=== PATIENT | female | born 1975 | race Caucasian/White ===

== ENCOUNTER → 2017-11-28 | Outpatient (CLI) | payer BC ==
[~2017-11-28] MED LIST: PRENTAB26 PO
== END | disposition home or self-care (01) ==
LOC: C.PAPS 14:41
PROVIDERS: ATTEND Obstetrics & Gynecology
DX: Z01.419 Encounter for gynecological examination (general) (routine) without abnormal findings (principal)

== ENCOUNTER → 2017-12-10 | Outpatient (CLI) | payer BC ==
[2017-12-10 17:21] LABS: BASO % 0.2 %; BASO ABS # 0.02 K/uL (0-0.2); EOS % 2.6 %; EOS ABS # 0.23 K/uL (0-0.5); HEMATOCRIT 38.7 % (37-47); HEMOGLOBIN 13.3 g/dL (12.0-16.0); IG# 0.01 K/uL (0.00-0.02); LYMPH % 30.6 %; LYMPH ABS # 2.75 K/uL (1.2-3.4); MEAN CELL VOLUME 91.3 fL (80-100); MEAN CORPUSCULAR HEMOGLOBIN 31.4 pg (25-34); MEAN CORPUSCULAR HGB CONC 34.4 g/dl (32-36); MEAN PLATELET VOLUME 10.7 fL (7.4-10.4); MONO % 7.7 %; MONO ABS # 0.69 K/uL (0.11-0.59); NEUT % 58.8 %; NEUT ABS # 5.29 K/uL (1.4-6.5); PLATELET COUNT 250 K/uL (130-400); RED CELL DISTRIBUTION WIDTH CV 12.9 % (11.5-14.5); RED CELL DISTRIBUTION WIDTH SD 42.9 fL (36.4-46.3); WHITE BLOOD COUNT 8.99 K/uL (4.8-10.8)
== END | disposition home or self-care (01) ==
LOC: C.LABPVFM 15:57
PROVIDERS: ATTEND Obstetrics & Gynecology
DX: N92.0 Excessive and frequent menstruation with regular cycle (principal)

== ENCOUNTER 2024-03-27 06:08 | Observation (INO) ==
--- NOTE | 2024-03-19 09:15 | Anesthesiology Consultation ---
Date of Service March 19, 2024 Assessment & Plan Chart Review Chart Review: Acceptable Risk for Surgery and Patient NOT seen in Pre Admission Testing Consults Requested none History Surgery Operation Date: 03/27/24 09:20 Proposed Procedures p Total Abdominal Hysterectomy, With Preservation of Both Ovaries - Esvin Ramirez MD s Suspension of Vaginal Cuff - Esvin Ramirez MD Height/Weight Height: 5 ft 2 in Weight: 79.379 kg Allergies Allergy/AdvReac Type Severity Reaction Status Date / Time No Known Allergies Allergy Unknown Verified 03/19/24 07:32 Medications Home Medications Medication Instructions Recorded Confirmed Last Taken No Known Home Medications 03/19/24 03/19/24 Unknown Past Medical History Medical History No known health problems History of postoperative nausea and vomiting Past Surgical History Surgical History History of section x 2 History of cholecystectomy Social History Smoking Status: Never smoker Do You Dip or Chew Tobacco: No Hx Alcohol Use: No Hx Substance Use: No substance use type: does not use
[2024-03-27 06:42] LABS: Basophils # (auto) 0.05 K/uL (0.00-0.20); Basophils % (auto) 0.7 %; Eosinophils # (auto) 0.37 K/uL (0.00-0.50); Hematocrit (blood only) 42.1 % (37.0-47.0); Hemoglobin 14.1 g/dl (12.0-16.0); Immature Granulocytes # (auto) 0.02 K/uL (0.01-0.20); Immature Granulocytes % (auto) 0.3 %; Lymphocytes # (auto) 2.54 K/uL (1.20-3.40); Lymphocytes % (auto) 34.4 %; Mean Corpuscular Hemoglobin 30.5 pg (25.0-34.0); Mean Corpuscular Hgb Conc 33.5 g/dL (32.0-36.0); Mean Corpuscular Volume 91.1 fL (80.0-100.0); Mean Platelet Volume 9.8 fL (9.4-12.4); Monocytes # (auto) 0.58 K/uL (0.11-0.59); Monocytes % (auto) 7.8 %; Neutrophils # (auto) 3.83 K/uL (1.40-6.50); Neutrophils % (auto) 51.8 %; Platelet Count 291 K/uL (130-400); RDW Coefficient of Variation 12.4 % (11.5-14.5); RDW Standard Deviation 40.9 fL (36.4-46.3); Red Blood Count 4.62 M/uL (4.20-5.40); White Blood Count 7.39 K/ul (4.8-10.8)
[2024-03-27] MEDS: LACTATED RINGER'S 1,000 ML IV SCH ×3 (06:46→13:00)
--- NOTE | 2024-03-27 07:05 | History & Physical Bridge Note ---
Date of Service March 27, 2024 History & Physical Bridge Note I have examined the patient, reviewed the History & Physical and in the interval since the performance of the History & Physical I have noted the following changes of clinical significance: no changes noted
[2024-03-27] MEDS: SCOPOLAMINE 1 MG/72 HR TDSY PATCH TD ONE ×2 (07:39→08:38)
[2024-03-27] MEDS ORDERED: MIDAZOLAM HCL 1 MG/ML 2ML VIAL ONE ×2 (07:40→08:16)
[2024-03-27] MEDS ORDERED: fentaNYL citrate PF 100 MCG/2 ML VIAL ONE ×2 (07:40→08:12)
[2024-03-27] MEDS ORDERED: MoRPHine SULFATE PF 1 MG/ML 10 ML AMP/VIAL ONE (07:40)
[2024-03-27] MEDS ORDERED: NALOXONE HCL 1 MG in SODIUM CHLORIDE 0.9% 1,000 ML IV PRN (08:16)
[2024-03-27] MEDS ORDERED: diphenhydrAMINE 50 MG/ML VIAL IV PRN (08:16)
[2024-03-27] MEDS ORDERED: NALOXONE HCL 0.4 MG/1 ML VIAL/CARP IV PRN (08:16)
[2024-03-27] MEDS ORDERED: MEPERIDINE HCL 25 MG/ML CARP/VIAL IV PRN (08:16)
[2024-03-27] MEDS ORDERED: ePHEDrine sulfate 50 MG/ML AMP IV PRN (08:16)
[2024-03-27] MEDS ORDERED: NALBUPHINE HCL 5 MG in SYRINGE 0 ML IV PRN (08:16)
[2024-03-27] MEDS ORDERED: NALOXONE HCL 0.08 MG in SYRINGE 1.8 ML IV PRN (08:16)
[2024-03-27] MEDS ORDERED: LACTATED RINGER'S 500 ML IV PRN (08:16)
[2024-03-27] MEDS ORDERED: LIDOCAINE 2% 2 ML VIAL/AMP(20MG/ML) INFIL ONE (08:18)
[2024-03-27] MEDS ORDERED: PROPOFOL IV EMULSION 10 MG/ML 20 ML VIAL IV ONE ×2 (08:18→11:00)
[2024-03-27] MEDS ORDERED: ROCURONIUM BROMIDE 10 MG/ML 5 ML VIAL IV ONE (08:19)
[2024-03-27] MEDS ORDERED: DEXAMETHASONE SOD INJ 4 MG/ML VIAL ONE ×2 (08:19→10:45)
[2024-03-27] MEDS ORDERED: DC INTRASPINAL MORPHINE SCH (08:30)
[2024-03-27] MEDS ORDERED: NO NARCOTICS OR SEDATIVES SCH (08:30)
[2024-03-27] MEDS: cefOXitin 2,000 MG in DEXTROSE 5 % MINI-B 50 ML IV SCH (08:32)
[2024-03-27] MEDS ORDERED: KETAMINE HCL 10MG/ML SYR ONE (08:58)
[2024-03-27] MEDS ORDERED: METOCLOPRAMIDE HCL INJ 5 MG/ML 2 ML VIAL ONE (09:22)
[2024-03-27] MEDS ORDERED: SUGAMMADEX SODIUM 200 MG/2 ML VIAL IV ONE (10:45)
[2024-03-27] MEDS ORDERED: ONDANSETRON INJ 2 MG/ML 2 ML VIAL ONE (10:45)
--- OUTSIDE RECORDS SUMMARY | 2024-03-27 10:51 | External Medical Summary | Summary of Care ---
Author Name Unknown Organization [facility] Address [address] [place] [address] Phone [phone] Care Team Providers Care [facility]of[facility]oped[facility] Dentist Name Role Phone Unavailable Primary Care Provider Unavailabl e Reason for Visit * Reason Comments Pre-Op Testing Encounter Details Date Type Department Care Team (Late st Contact Info) Description 03/17/2024 1:00 PM EDT Office Visit Gynecology/Obstetrics [facility] [address] [place] [id number] Esvin Ramirez MD [address] [place] [phone] Pre-op testing* Allergies No known active allergiesdocumented as of this encounter (statuses as of 03/17/2024) Medications Medication Sig Dispensed Refills Start Date End Date Status Norethindrone Acetate 5 MG Oral Tablet Take 1 Tablet by mouth in the morning. 01/01/2024 Active documented as of this encounter (statuses as of 03/17/2024) Active Problems Problem Noted Date Diagnosed Date Pelvic pain in female 01/28/2024 documented as of this encounter (statuses as of 03/17/2024) Social History Tobacco Use Types Packs/Day Years Used Date Smoking Tobacco: Never Smokeless Tobacco: Never Alcohol Use Standard Drinks/Week Comments No 0 (1 standard drink = 0.6 oz pur e alcohol) Hunger Vital Sign Answer Date Recorded Within the past 12 months, y ou worried that your food would run out before you got the money to buy more. Never true 01/14/20 24 Within the past 12 months, t he food you bought just didn't last and you didn't have money to get more. Never true 01/14/2024 Childcare Answer Date Recorded Do you feel overwhelmed with taking care of a child, family member or friend? No 01/14/2024 Does your family need help f inding childcare? (Household - for ages 0-17 years) Not on file 01/14/2024 Clothing Answer Date Recorded Have you been unable to get clothing when it was really needed? No 01/14/2024 Is your family able to get c lothes or diapers when needed? (Household - for ages 0-17 years) Not on file 01/14/2024 Personal Safety Answer Date Recorded Do you feel unsafe or have concerns for your saf ety? No 01/14/2024 Do you have concerns for you r family's safety? (Household - for ages 0-17 years) Not on file 01/14/2024 Utilities Answer Date Recorded Do you have trouble paying y our heating, water, or electric bill? No 01/14/2024 Is your family able to pay t he heat, water, or electric bill? (Household - for ages 0-17 years) Not on file 01/14/2024 Does your family have access to good internet? (Household - for ages 0-17 years) Not on file 01/14/2024 Employment Status Answer Date Recorded Are you unemployed or without regular income? No 01/14/2024 Does the household have a re gular source of income? (Household - for ages 0-17 years) Not on file 01/14/2024 Social Connections Answer Date Recorded How often do you feel lonely or isolated from th ose around you? Never 01/14/2024 Financial Resource Strain Answer Date R ecorded Do you have any trouble payi ng for your medications, or do you think you might in the future? No 01/14/2024 Does your family have troubl e paying for medicine? (Household - for ages 0-17 years) Not on file 01/14/2024 Transportation Needs Answer Date Record ed READ ONLY Do you have troubl e getting a ride to medical visits or work? Never True 01/14/2024 Does your family have a hard time getting a ride to doctors visits? (Household - for ages 0-17 years) Not on file 01/14/2024 Has lack of transportation k ept you from medical appointments, meetings, work, or from getting things needed for daily living? Check all that apply. (Adult - for ages 18 years and over) Not on file 01/14/2024 Do you (or your family) have trouble finding or paying for a ride (transportation)? (Household - for ages 0-17 years) Not on file 01/14/2024 Housing Stability Answer Date Recorded Do you currently live in a s helter or have no steady place to sleep at night? No 01/14/2024 READ ONLY Do you think you a re at risk of becoming homeless? No 01/14/2024 Does your family worry about paying for your home or becoming homeless? (Household - for ages 0-17 years) Not on file 0 01/14/2024 Are you homeless or worried that you might be in the future? (Adult - for ages 18 years and over) Not on file Are you (or your family) ruddy eless or worried that you might be in the future? (Household - for ages 0-17 years) Not on file Food Insecurity Answer Date Recorded Do you need food for this week? No 01/14/2024 Are you able to get enough f ood for your family? (Household - for ages 0-17 years) Not on file 01/14/2024 Does your family need food t his week? (Household - for ages 0-17 years) Not on file 01/14/2024 Do you always have enough fo od for your family? (Household - for ages 0-17 years) Not on file 01/14/2024 Sex and Gender Information Value Date Recorded Sex Assigned at Female 01/14/2024 10:17 AM EDT Gender Identity Female 01/14/2024 10:17 AM EDT Sexual Orientation Straight 01/14/2024 10 :17 AM EDT Job Start Date Occupation Industry Not on file Not on file Not on file documented as of this encounter Last Filed Vital Signs Vital Sign Reading Time Taken Comments Blood Pressure 110/66 03/17/2024 12:51 PM EDT Pulse - - Temperature 37 C (98.6 F) 03/17/2024 12:51 PM EDT Respiratory Rate - - Oxygen Saturation - - Inhaled Oxygen Concentration - - Weight 80.3 kg (177 lb) 03/17/2024 12:51 PM EDT Height 157.5 cm (5' 2") 03/17/2024 12:51 PM EDT Body Mass Index 32.37 03/17/2024 12:51 PM EDT documented in this encounter H&P Notes * Esvin Ramirez MD - 03/17/2024 1:19 PM EDT Nelida Olivares is a 48 year old, , Pre-menopausal female, presenting with Pelvic Pain: Onset/Duration: Patient has had her tubes tied and an endometrial ablation in 2013. She has had worsening pelvic pain for the past year and a half. She is getting severe pelvic pain at that time she should have her periods. She has no bleeding at the time she should have her menses. But she does have severe dysmenorrhea for several days. She has been evaluated with transvaginal ultrasound. She isdiagnosed with post endometrial ablation syndrome. These symptoms have been managed temporarily with norethindrone 5 mg daily. She is presently admitted for total abdominal hysterectomy with preservation of the ovaries and suspension of the vaginal cuff. Prior treatment: Tubal ligation with endometrial ablation in 2013 Recent imaging: Recently has had a transvaginal ultrasound which revealed post ablation syndrome. Menstrual history: Patient has had amenorrhea since undergoing endometrial ablation in 2013 PAST MEDICAL HISTORY: Past Medical History: Diagnosis Date Abnormal Papanicolaou smear of cervix and cervical HPV colpo- cyro PAST SURGICAL HISTORY: Past Surgical History: Procedure Laterality Date LIGATE/CUT OVIDUCT(S) VT DELIVERY ONLY x2 REMOVE GALLBLADDER FAMILY HISTORY: Family History Problem Relation Name Age of Onset Diabetes Grandmother (Maternal) Asthma Mother Beth Asthma Father Siva Bladder SOCIAL HISTORY: Social History Tobacco Use Smoking status: Never Smokeless tobacco: Never Substance Use Topics Alcohol use: No Drug use: No ALLERGIES: Patient has no known allergies. ROS: Constitutional: (-) fever chills sweats or weight loss Cardiovascular: (-) negative: no chest pain, dyspnea, syncope, or palpitations Pulmonary : (-) negative: no cough, wheezing, or shortness of breath Abdominal/GI: (-) negative: no pain, heartburn, dysphagia, bleeding, change in bowel habits, nauseaor vomiting Neurology: (-) negative: no focal neurologic defect PHYSICAL EXAMINATION: Most Recent Vital Signs: BP 110/66 | Temp 37 C (98.6 F) | Ht 1.575 m (5' 2") | Wt 80.3 kg (177 lb) | BMI 32.37 kg/m | BSA 1.87 m Constitutional: no acute distress HEENT: Head normocephalic, sclera clear, and neck supple, no adenopathy Heart: Regular rate & rhythm and no murmurs Lungs: respirations even and unlabored and lungs clear to auscultation Abdomen: soft, non-tender, no rebound, and abdomen soft and nontender with a well-healed Pfannenstiel incisional scar Neuro: alert and to person, place and time with fluent speech and no focal motor/sensory deficits noted IMPRESSION: Nelida Olivares is a 48 year old with patient has pelvic pain for the past 1-1/2 years. It is getting progressively worse over this period of time. And it is not responsive to nonnarcotic pain relievers. Pain is sufficient enough to interfere with her daily activities for the past 6 months PLAN: Total abdominal hysterectomy with preservation of both ovaries suspension of vaginal cuff. Esvin Ramirez MD documented in this encounter Nursing Notes * Eliana Cobian LPN - 03/17/2024 12:50 PM EDT Pt here today for pre op. documented in this encounter Plan of Treatment Health Maintenance Due Date Last Done Comments Diabetes Screening 1977 Lipid Panel 1977 Depression Screening 1989 HIV Screening 1992 Hepatitis C Screening 1995 DTaP,Tdap,and Td Vaccines (1 - Tdap) 1996 Hepatitis B Vaccine (1 of 3 - 19+ 3-dose series) 1996 Pap Smear 11/02/2005 11/02/2002, 11/02/2002 Cervical Cancer Screening 2007 HPV/Co-Test 2007 Mammogram 2017 Cologuard 2022 Colonoscopy 2022 Colorectal Cancer Screening 2022 Fecal Occult Blood Test 2022 Sigmoidoscopy 2022 COVID-19 Vaccine ( season) 2023 05/16/2021, 09/06/2020, 08/16/2020 Influenza Vaccine (FLU shot) (#1) 2024 05/29/2023, 05/30/2022, 05/31/2021, Additional history exists HPV (Gardasil) Vaccine Aged Out No lo nger eligible based on patient's age to complete this topic MENINGOCOCCAL (MENACTRA/MENVEO) Aged Out No longer eligible based on patient's age to complete this topic Pneumococcal Vaccine: Pediatrics (0 to 5 Years) and At-Risk Patients (6 to 64 Years) Aged Out No longer eligible based on patient's age to complete this topic documented as of this encounter Medical Devices Not on filedocumented as of this encounter Visit Diagnoses Diagnosis Pre-op testing- Primary Preoperative examination, unspecified documented in this encounter
[2024-03-27] MEDS: HEPARIN (PORCINE) 1000 UNIT/ML 10 ML (CATH LAB USE ONLY) ONE (11:21)
[2024-03-27] MEDS: LIDOCAINE 1%/EPINEPHRINE 1:100,000 50 ML VIAL ONE (11:21)
[2024-03-27] MEDS: VASOPRESSIN 20 UNIT/ML VIAL ONE (11:21)
--- NOTE | 2024-03-27 11:27 | Post Operative Brief Note ---
Immediate Post Op Note Date of Surgery March 27, 2024 Pre & Post Diagnosis Operation Date: 03/27/24 07:50 Pre-Op Diagnosis: Post endometrial ablation syndrome Post-Op Diagnosis: Post endometrial ablation syndrome I identified the patient and participated in the time-out.: Yes Procedure Operation Date: 03/27/24 07:50 Actual Procedures p Total Abdominal Hysterectomy, Left Salpingo-oopherectomy, Removal of Left Side Chocolate cyst endometrium(Left) - Esvin Ramirez MD Surgeon Esvin Ramirez MD Press Hand dulce Estimated Blood Loss 200 Findings Consistent with Post-Op Diagnosis left sided endometrioma Drains Ling Catheter and Jhonatan Drain (with safety pin) Complications none
[2024-03-27] MEDS: ONDANSETRON INJ 2 MG/ML 2 ML VIAL IV PRN (11:45)
--- NOTE | 2024-03-27 11:45 | Operative Report ---
Post Operative Report Pre & Post Diagnosis Operation Date: 03/27/24 07:50 Pre-Op Diagnosis: Post endometrial ablation syndrome Post-Op Diagnosis: Post endometrial ablation syndrome Left-sided endometrioma I identified the patient and participated in the time-out.: Yes Procedure Operation Date: 03/27/24 07:50 Actual Procedures p Total Abdominal Hysterectomy, Left Salpingo-oopherectomy, Removal of Left Side Chocolate cyst endometrium(Left) - Esvin Ramirez MD Surgeon Esvin Ramirez MD Gyn dulce Estimated Blood Loss 200 Findings Consistent with Post-Op Diagnosis Left-sided endometrioma Specimens Total abdominal hysterectomy removal of left to an associated endometrioma. Drains [place] drain and vaginal cuff. Anesthesia Type General w/FOI & Regional Complications none Indications Pelvic pain Description of Procedure Patient was brought to the OR table correctly identified by armband and conversation. Compression stockings were applied. A Ling catheter was inserted aseptically into the bladder and connected to gravity drainage. A vaginal prep was performed. Lower abdomen and umbilical area was painted with an alcohol-based sterilizing solution draped in usual sterile fashion. An incision was made through her previous Pfannenstiel scar. Decision was carried down to the anterior fascia by sharp dissection. Hemostasis was secured by electrocauterization. Fascia was incised transversely the recti muscles by blunt and sharp dissection. Peritoneum was carefully raised and entered. An O'Antonio-O'Johnson self-retaining retractor was inserted into the incision. 4 laparotomy packs were used to retract and provide adequate exposure. At this time there was some evidence of endometriosis and a 4 to 5 cm chocolate cyst of the left ovary. The hysterectomy was started by clamping and ligating the round ligaments on either side. Excising both the vesicouterine fold and pushing the bladder out of the operative field. We then isolated the blood supply to the ovary on the left side basically the infundibulopelvic ligament and tied it off with 2 separate silk sutures. We then cut the left ov luisa free. We advanced the bladder flap down clamp the uterine vessels on the left side with a curved Mateus. On the right side we dissected the tube and ovary off the fundus of the uterus. Cut it free tagged it with a chromic tag and then ligated it with a silk suture. The uterine vessels on this side were clamped with a curved Mateus. Vessels were then cut doubly ligated with chromic gut suture. Stumps were cauterized. The bladder was advanced out of the operative field the cardinal ligaments were cut by sliding off the cervix with a curved Mateus in both the left and right side cutting the cardinal ligaments with the stump and then ligating them with a Chromic Gut suture this was done in 2 steps because of the length of the cardinal ligament following this the cervix was shelled out with electrocautery. The angles of the vaginal cuff were suture-ligated to the stumps of the cardinal ligament on each side with an individual Chromic Gut suture. The vaginal mucosa was approximated front to back on each angle with a Chromic Gut suture. The midportion of the vaginal cuff was whipstitched open with a continuous interlocking suture of chromic. The uterosacral ligaments posterior were approximated with a [id number] suture of heavy Vicryl to support the vaginal cuff. Following this the round ligaments were brought down and tied into the stumps of the cardinal ligaments on each side. Reperitonealization was accomplished with a continuous Chromic Gut suture which buried the stump of the adnexa on the right side and cover the stump of the adnexa on the left side a [place] drain with a safety pin was placed into the vaginal cuff and the other and into the cul-de-sac. At the time of closure hemostasis was excellent. Packs were removed counts were normal. Retractor was removed. Careful anatomical approximation of the anterior abdominal wall was performed. Peritoneum was closed with a continuous suture chromic catgut. Recti muscles approximated interrupted [id number] suture of chromic catgut. Fascia was closed with continuous interlocking suture of Vicryl on each side tied the middle. Subcutaneous was approximated with a running plain. Skin edges were approximated with staple clips. Patient tolerated procedure well. Estimated blood loss was 200 mL. I attest to the content of the Intraoperative Record and any orders documented therein. Any exceptions are noted below.
--- NOTE | 2024-03-27 11:57 | Anesthesiology Progress Note ---
Date of Service March 27, 2024 Anesthesia Post Procedure Vital Signs Vital Signs: Temp Pulse Pulse Resp BP Pulse Ox O2 Del Method 03/27/24 11:50 89 20 120/65 93 Room Air 03/27/24 11:40 97 H 22 128/77 92 Room Air 03/27/24 11:30 100 H 22 135/73 92 Room Air 03/27/24 11:20 102 H 22 127/79 97 Oxymask 03/27/24 11:12 96.8 F L 113 H 21 137/77 96 Oxymask 03/27/24 06:30 98.8 F 75 18 120/75 98 Room Air O2 Flow Rate 03/27/24 11:50 0 03/27/24 11:40 0 03/27/24 11:30 0 03/27/24 11:20 4 03/27/24 11:12 4 03/27/24 06:30 Transfer of Care Handoff Completed per policy Notes Mental Status: alert / awake / arousable and participated in evaluation Patient Amnestic to Procedure: Yes Nausea / Vomiting: adequately controlled Pain: adequately controlled Airway Patency, RR, SpO2: stable & adequate BP & HR: stable & adequate Hydration State: stable & adequate Anesthetic Complications: no major complications apparent and Pt Satisfied with anesthetic care
[2024-03-27] MEDS: PROMETHAZINE HCL INJ 25 MG/ML 1 ML VIAL ONE (12:07)
[2024-03-27] MEDS ORDERED: MAGNESIUM HYDROXIDE SUSP 30 ML UDC PO PRN (13:36)
[2024-03-27] MEDS ORDERED: MEPERIDINE HCL 50 MG/ML CARP IV PRN (13:36)
[2024-03-27] MEDS ORDERED: SENNA 8.6 MG TAB PO PRN (13:36)
[2024-03-27] MEDS ORDERED: bisacodyL 10 MG SUPP PR PRN (13:36)
[2024-03-27] MEDS ORDERED: PROMETHAZINE 25 MG/51 ML BAG IV PRN (13:36)
[2024-03-27] MEDS ORDERED: ONDANSETRON INJ 2 MG/ML 2 ML VIAL IV PRN (13:36)
[2024-03-27] MEDS ORDERED: CHECK SCOPOLAMINE PATCH PLACEMENT SCH (16:00)
[2024-03-27] MEDS: PROMETHAZINE 6.25 MG/50.25 ML BAG IV STA (19:15)
[2024-03-27] MEDS: D5W AND LACTATED RINGERS 1,000 ML IV SCH (19:18)
[2024-03-27] MEDS: SODIUM CHLORIDE 0.9% 1,000 ML IV SCH (19:18)
[2024-03-27] MEDS: MoRPHine SULFATE PF 1 MG/ML 10 ML AMP/VIAL INT SPINAL ONE (19:48)
[2024-03-27] MEDS: KETOROLAC 30 MG/ML VIAL IV PRN (23:55)
[2024-03-28 07:03] LABS: Hemoglobin 11.1 g/dl (12.0-16.0)
--- NOTE | 2024-03-28 08:37 | Obstetrical Progress Note ---
Date of Service March 28, 2024 Assessment & Plan Admission and Anticipated Discharge Date Admission Date: March 27, 2024 OB Progress Note abdomen soft and non tender bowel sounds present hypoactive bandage removed incision is clean and dry no calf tenderness vaginal bleeding scant hgb 11.1 Results & Data Vital Signs (Past 12 Hours) Vital Signs Temp Pulse Resp BP Pulse Ox O2 Del Method 03/28/24 07:15 36.9 C 75 18 96/69 L 94 Room Air 03/28/24 03:40 37 C 76 16 105/60 94 Room Air 03/28/24 02:00 16 94 03/28/24 01:00 16 93 03/27/24 23:45 37.1 C 75 16 103/61 97 Room Air 03/27/24 23:00 16 95 03/27/24 22:00 16 96 03/27/24 21:03 18 95
[2024-03-28] MEDS: IBUPROFEN 600 MG TAB PO PRN (13:04)
[2024-03-28] MEDS: ACETAMINOPHEN 325 MG TAB PO PRN (15:44)
[2024-03-28] MEDS: oxyCODONE/ACETAMINOPHEN 5mg/325mg TAB PO PRN (16:51)
--- NOTE | 2024-03-29 09:52 | Obstetrical Progress Note ---
Date of Service March 29, 2024 Assessment & Plan Admission and Anticipated Discharge Date Admission Date: March 27, 2024 OB Progress Note abdomen soft and non tender incision is clean and dry ambulating well no calf tenderness vaginal bleeding scant hgb 11.1 Results & Data Vital Signs (Past 12 Hours) Vital Signs Temp Pulse Resp BP Pulse Ox O2 Del Method 03/29/24 08:11 36.9 C 88 16 128/74 97 Room Air 03/29/24 03:56 37.0 C 81 16 134/79 Room Air 03/28/24 23:53 36.9 C 71 14 130/74 93 Room Air
--- NOTE | 2024-03-29 10:02 | Discharge Summary ---
Date of Service March 29, 2024 Discharge Data Procedures Performed Operation Date: 03/27/24 07:50 Actual Procedures p Total Abdominal Hysterectomy, Left Salpingo-oopherectomy, Removal of Left Side Chocolate cyst endometrium(Left) - Esvin Ramirez MD Hospital Course (1) Deep endometriosis of left ovary: (2) Post endometrial ablation syndrome: Plan Patient is a 48-year-old 2 para 2. Patient has history of worsening pelvic pain for over 1 year. Not responsive to nonnarcotic pain relievers. Patient had an endometrial ablation about 5 to 6 years prior to this. Patient was diagnosed as suffering from post endometrial ablation syndrome. Patient was admitted for total abdominal hysterectomy with preservation of both ovaries and suspension of vaginal cuff. At the time of surgery patient was found to have a chocolate cyst of the left ovary about 5 cm in diameter. Necessitating the removal of the left tube and ovary along with the uterus and cervix. The right ovary was left in place. Postoperatively the patient did well. Her bowel sounds returned within about 24 hours. At the time of discharge she was ambulating well eating well. Pain was well-controlled with oral pain medications. Ramona drain with safety pin was removed from the vaginal cuff. Patient was instructed to return to the office in 1 week for removal of jaxon. And to call if she had a temp over 100 or any heavy bleeding.
== END 2024-03-29 10:45 | disposition home or self-care (01) ==
LOC: ASU 06:08 → 4E1 11:25 → INTOOBSV 11:25